=== PATIENT | female | born 1960 | race African-American/Black ===

== ENCOUNTER 2016-11-12 19:48 | Emergency (ER) | payer BC, OTHER ==
[~2016-11-12 19:48] MED LIST: ACET500CAP PO; ASAB PO; AVINZA30 PO; BEN25 PO; COZ25 PO; CYMBALTA60 PO; DURA12 TOP; GLUCPH PO; LEVEMFLXPN SC; LIPITOR40 PO; LOP25 PO; LYRICA100 MG PO; LYRICA300 MG PO; MAX25 PO; NAP500 PO; NEUR600 PO; NEUR800 PO; NITROQUICK0.4 MG SL; NORCO1 TAB PO; NORV5 PO; NOVOLOG SC; OPANA ER30 MG PO; OPANA5 MG PO; OXYCOD PO; PERCOCET1 TA4 PO; PLAVIX PO; PRAVASTATIN PO; RELA5 PO; TRAZODONE150 MG PO; WELL75 PO; ZANAFLEX2 MG PO; ZESTRIL20 MG PO; ZYRTEC ALLGY10 MG PO
== END 2016-11-12 21:16 | disposition home or self-care (01) ==
LOC: ER 19:48
DX: M54.5 Low back pain (principal); Z88.8 Allergy status to other drugs, medicaments and biological substances; Z79.899 Other long term (current) drug therapy
CPT/HCPCS: 72100; 96372; 99283; J1170; J2405